=== PATIENT | male | born 1960 | race Two or more races ===

== ENCOUNTER 2022-11-11 12:45 | Emergency (ER) | payer OTHER ==
[~2022-11-11] VITALS: Ht 172.7 cm; Wt 79.4 kg
== END 2022-11-11 15:18 | disposition home or self-care (01) ==
LOC: ER 12:45
DX: R53.1 Weakness (principal); S09.8XXA Other specified injuries of head, initial encounter; W19.XXXA Unspecified fall, initial encounter; Y93.89 Activity, other specified; Y92.018 Other place in single-family (private) house as the place of occurrence of the external cause; E11.65 Type 2 diabetes mellitus with hyperglycemia; I10 Essential (primary) hypertension